=== PATIENT | male | born 1950 | race Two or more races ===

== ENCOUNTER 2023-07-21 17:43 | Emergency (ER) | payer MEDICARE, OTHER ==
[~2023-07-21] VITALS: Ht 172.7 cm; Wt 90.7 kg
[2023-07-21] MEDS ORDERED: PRED50TA PO (18:18)
[2023-07-21] MEDS ORDERED: predniSONE 20 MG TABLET ONE (18:19)
[2023-07-21 18:29] VITALS: BP 120/62; TEMP 99; O2SAT 100
[2023-07-21] MEDS ORDERED: predniSONE 50 MG TABLET PO ONE ×2 (18:30)
== END 2023-07-21 18:37 | disposition home or self-care (01) ==
LOC: ER 17:45
DX: L50.9 Urticaria, unspecified (principal); L29.9 Pruritus, unspecified; T36.8X5A Adverse effect of other systemic antibiotics, initial encounter; I10 Essential (primary) hypertension; Z98.890 Other specified postprocedural states; Z88.2 Allergy status to sulfonamides; Y92.89 Other specified places as the place of occurrence of the external cause
CPT/HCPCS: 99283; J7512